=== PATIENT | female | born 1935 | race Caucasian/White ===

== ENCOUNTER → 2021-06-08 | Outpatient (CLI) | payer MEDICARE, OTHER ==
[~2021-06-08] MED LIST: ATEN50 PO; ATOR10 PO; Amaryl4 MG PO; Aspirin EC81 MG PO; Aspirin325 MG PO; CALCAVITD PO; CEPH500 PO; CHOL10002 PO; EPIN.3I IM; HYDR25SUP PR; INS70/30PN SC; INSULANPEN SC; LEVSOD100 PO; LISI20 PO; LOSA50 PO; MAGNESIUM-ZINC PO; METFORMIN HCL1000 MG PO; NEBI10; OMEP40CA12 PO; OXYACE5T PO; PARO20 PO; TRAM50 PO; TRULICITY1.5 MG/0.5 SC; Ultram50 MG PO; VENLAFAXINE HCL75 MG PO
[2021-06-08 15:01] LABS: Source, Urine Clean Catch
[2021-06-08 18:04] LABS: Appearance, Urine Clear (Clear); Bilirubin, Urine Neg (Neg); Blood, Urine 1+ (Neg); Color, Urine Yellow (P-Yellow); Glucose Qualitative, Urine Neg (Neg); Ketones, Urine Neg (Neg); Leukocyte Esterase, Urine 1+ (Neg); Nitrite, Urine Neg (Neg); Protein, Urine 1+ (Neg); Specific Gravity, Urine 1.015 (1.003-1.022); Urobilinogen, Urine NORM (Normal)
[2021-06-08 18:17] LABS: Bacteria Few /hpf; Squamous Epithelial Cells Few /hpf (Few)
== END | disposition home or self-care (01) ==
LOC: LAB SHORT 14:59
PROVIDERS: Internal Medicine
DX: R30.0 Dysuria (principal)
CPT/HCPCS: 81001; 87086

== ENCOUNTER → 2021-07-23 | Outpatient (CLI) | payer MEDICARE, OTHER ==
[2021-07-23 15:04] LABS: Source, Urine Clean Catch
[2021-07-23 18:19] LABS: Appearance, Urine Clear (Clear); Bilirubin, Urine Neg (Neg); Blood, Urine 2+ (Neg); Color, Urine Yellow (P-Yellow); Glucose Qualitative, Urine 4+ (Neg); Ketones, Urine Neg (Neg); Leukocyte Esterase, Urine Neg (Neg); Nitrite, Urine Pos (Neg); Protein, Urine Neg (Neg); Specific Gravity, Urine 1.015 (1.003-1.022); Urobilinogen, Urine NORM (Normal)
[2021-07-23 18:40] LABS: Bacteria Many /hpf; Squamous Epithelial Cells Few /hpf (Few)
== END | disposition home or self-care (01) ==
LOC: LAB SHORT 15:02 → LAB 15:02
PROVIDERS: Internal Medicine
DX: R30.0 Dysuria (principal)
CPT/HCPCS: 81001; 87077; 87086; 87186

== ENCOUNTER → 2023-01-11 | Outpatient (CLI) | payer MEDICARE ==
[2023-01-11 12:08] LABS: Source, Urine Clean Catch
[2023-01-11 13:30] LABS: Appearance, Urine Hazy (Clear); Bilirubin, Urine Neg (Neg); Blood, Urine 2+ (Neg); Color, Urine Yellow (P-Yellow); Glucose Qualitative, Urine 2+ (Neg); Ketones, Urine Neg (Neg); Leukocyte Esterase, Urine 1+ (Neg); Nitrite, Urine Pos (Neg); Protein, Urine Neg (Neg); Specific Gravity, Urine 1.025 (1.003-1.022); Urobilinogen, Urine NORM (Normal)
[2023-01-11 14:14] LABS: Bacteria Many /hpf; Red Blood Cells, Urine 0-2 /hpf (0-2); Squamous Epithelial Cells Rare /hpf (Few)
== END | disposition home or self-care (01) ==
LOC: LAB SHORT 12:08 → LAB 12:08
PROVIDERS: Internal Medicine
DX: R30.0 Dysuria (principal)
CPT/HCPCS: 81001; 87077; 87086; 87186

== ENCOUNTER → 2023-07-07 | Outpatient (CLI) | payer MEDICARE, OTHER | LOC: LAB 15:56 → LAB SHORT 15:56 | DX: N39.0 Urinary tract infection, site not specified (principal) | CPT/HCPCS: 87077; 87086; 87186 ==

== ENCOUNTER 2025-02-14 07:55 | Day surgery (SDC) | payer MEDICARE, OTHER ==
[~2025-02-14] VITALS: Ht 165.1 cm; Wt 67.7 kg
[~2025-02-14 07:55] MED LIST changes: +Lidocaine 1%-Epineph 1:100000 20 ML MDV ONE; +NS 500 ML IV ONE; +Sodium Bicarb 8.4% 1 MEQ/ML 50 ML Vial ONE
[2025-02-14] MEDS ORDERED: VENL25 PO (08:42)
[2025-02-14] MEDS ORDERED: INSULANI (08:43)
[2025-02-14] MEDS ORDERED: NS 500 ML IV ONE (08:54)
--- NOTE | 2025-02-14 08:55 | NUR ---
02/14/25 0855 TERE CRUZ 10CC LIDO C EPI BICARB LOCAL INJ TO Art MARTIN @08.RDS
[2025-02-14] MEDS ORDERED: CeFAZolin Sodium 2,000 MG VIAL ONE (09:16)
[2025-02-14 10:35] VITALS: BP 147/79
--- NOTE | 2025-02-14 10:35 | NUR ---
02/14/25 Alejandra5 Guido Tony DRESSING CAME OFF WHILE PT GETTING DRESSED. RE-WRAPPED BY JOELLE.
== END 2025-02-14 10:25 | disposition home or self-care (01) ==
LOC: ORSCSDS 07:55
PROVIDERS: Orthopaedic Surgery
PROC: 0LN70ZZ Release Right Hand Tendon, Open Approach (ICD-10-PCS; principal; 2025-02-14 09:45)
DX: M65.321 Trigger finger, right index finger (principal); M65.331 Trigger finger, right middle finger; M65.351 Trigger finger, right little finger; E11.9 Type 2 diabetes mellitus without complications; Z79.4 Long term (current) use of insulin; Z79.899 Other long term (current) drug therapy; F17.210 Nicotine dependence, cigarettes, uncomplicated; E07.9 Disorder of thyroid, unspecified
CPT/HCPCS: 82947; J0690; J2704; J7040